=== PATIENT | male | born 1945 | race Caucasian/White ===

== ENCOUNTER 2017-03-18 08:48 | Outpatient (CLI) | payer MEDICARE, OTHER ==
--- NOTE | 2017-03-18 11:03 | MRI ---
MRI OF THE LEFT KNEE: Date: 03-18-17 Clinical history: Left knee pain. FINDINGS: The anterior cruciate ligament, posterior cruciate ligament, medial collateral ligament and lateral c ollateral ligamentous complex demonstrate an intact MR appearance, as does the extensor mechanism. There is complex degenerative tearing/maceration of the body and posterior horn of the medial meniscu s. There is extensive associated articular cartilage loss which is full thickness in nature involving the central weight bearing portions of the medial femorotibial joints. There is nondisplaced oblique tear suspected involving the posterior horn of the lateral meniscus at the junction with the body. There is a mild to moderate knee joint effusion. There is articular cartilage absence involving the medial patellar facet and medial aspects of the fe moral trochlea. Osteophyte formation is seen about the knee. There is Sharma cyst formation. No focal concerning regional marrow or muscular signal abnormality is apparent. Signal change is reactive to t he tip of the cartilage loss about the medial and tibial joint are seen. Fluid signal intensity about the MCL is typical of the degree of degenerative arthrosis present. IMPRESSION: 1. Advanced degenerative arthrosis of the left knee preferentially involving the medial femorotibial joint and medial aspect of the patellofemoral joint. 2. Complex degenerative tearing involving the body and posterior horn of the medial meniscus and nond isplaced oblique tear suspected involving the posterior horn/body junction of the lateral meniscus. 3. Mild/moderate knee joint effusion with Sharma cyst formation. POS: [facility]
== END 2017-03-18 08:49 | disposition home or self-care (01) ==
LOC: TBSIIMAG 08:48
PROVIDERS: ATTEND Orthopaedic Surgery
DX: M25.562 Pain in left knee (principal); M17.12 Unilateral primary osteoarthritis, left knee; S83.232A Complex tear of medial meniscus, current injury, left knee, initial encounter

== ENCOUNTER 2017-04-12 08:24 | Outpatient (CLI) | payer MEDICARE, OTHER ==
[2017-04-12 10:10] LABS: Bilirubin Small (Negative); Blood, Urine Negative (Negative); Clarity TURBID (Clear); Glucose, Urine (Dipstick) Negative (Negative); Leukocyte Trace (Negative); Nitrite Negative (Negative); Protein, Urine (Dipstick) Trace mg/dL (Neg-Trace); Specific Gravity, Urine 1.027 (1.002-1.036)
[2017-04-12 10:13] LABS: Bacteria/HPF None Seen HPF (None Seen); Hyaline Casts/LPF 4-6 HYALINE CAST LPF (0-3 Hyaline); Pathc Cast-AUWi Flag 0.54 (0-2.49); Squamous Epithelial 0-3 HPF (0-3)
== END 2017-04-12 08:25 | disposition home or self-care (01) ==
LOC: LABBT 08:24
PROVIDERS: ATTEND Orthopaedic Surgery
DX: Z01.812 Encounter for preprocedural laboratory examination (principal); M17.12 Unilateral primary osteoarthritis, left knee
CPT/HCPCS: 81001

== ENCOUNTER 2017-04-21 08:24 | Outpatient (CLI) | payer MEDICARE, OTHER ==
[2017-04-21 09:21] LABS: Hemoglobin 14.4 g/dL (14.0-18.0); Mean Corpuscular HGB CONC 33.5 g/dL (32.0-36.0); Mean Corpuscular Hemoglobin 28.9 pg (27.0-31.0); Mean Corpuscular Volume 86.2 fl (80.0-94.0); Mean Platelet Volume 6.6 fL (7.4-10.4); Platelet Count 312 thou/uL (130-400); RBC Distribution Width 12.7 % (11.5-14.5); Red Blood Cell (RBC) Count 4.99 mill/uL (4.70-6.10); White Blood Cell (WBC) Count 9.2 thou/uL (4.8-10.8)
[2017-04-21 09:34] LABS: Anion Gap 12 mmol/L (10-20); BUN (Urea Nitrogen) 19 mg/dL (8.4-25.7); Calc. Creatinine Clearance 0 mL/min (70-130); Calcium 9.6 mg/dL (7.8-10.44); Carbon Dioxide 24 mmol/L (23-31); Chloride 104 mmol/L (98-107); Estimated GFR-MDRD 87; Glucose 136 mg/dL (83-110); Potassium 3.6 mmol/L (3.5-5.1); Sodium 136 mmol/L (136-145)
[2017-04-21 09:48] LABS: Prothrombin Time 13.5 SEC (12.0-14.7)
== END 2017-04-21 08:25 | disposition home or self-care (01) ==
LOC: LABBT 08:24
PROVIDERS: ATTEND Orthopaedic Surgery
DX: Z01.818 Encounter for other preprocedural examination (principal); M17.12 Unilateral primary osteoarthritis, left knee
CPT/HCPCS: 80048; 85027; 85610; 86850; 86900; 86901

== ENCOUNTER 2017-04-25 05:33 | Day surgery (SDC) | payer MEDICARE, OTHER ==
[2017-04-12 08:40] VITALS: BMI 40.2
--- NOTE | 2017-04-21 13:31 | HP ---
HISTORY OF PRESENT ILLNESS: The patient is a 71-year-old white male with a greater than 6-month hist ory of progressive left knee pain without specific injury, but he is normally quite active. He has h ad persistent symptoms despite rest, restriction of activities, anti-inflammatory medications and pre vious cortisone injection. The pain is now interfering with day-to-day activities. PAST MEDICAL HISTORY: The patient has had a previous rotator cuff repair, lumbar fusion and previous prostatectomy. He also has history of hypertension and high cholesterol. CURRENT MEDICATIONS: Include losartan, Crestor, ibuprofen and aspirin. ALLERGIES: He has no known allergies. FAMILY HISTORY: Otherwise unremarkable. SOCIAL HISTORY: Otherwise unremarkable. REVIEW OF SYSTEMS: Otherwise unremarkable. PHYSICAL EXAMINATION: GENERAL: Reveals a healthy heavyset male. HEENT: Unremarkable. NECK: Supple. CHEST: Clear. HEART: Regular rate and rhythm. ABDOMEN: Soft and nontender. RECTAL/GENITAL: Deferred. EXTREMITIES: Pertinent findings of the left knee. There is mild varus. There is tenderness and cre pitus over the medial joint line. There is puffiness, but no effusion. Range of motion is 0 to 125 degrees. There are palpable distal pulses. Neurovascular exam is intact. There is a left antalgic gait. X-RAY FINDINGS: X-rays of the left knee reveal bone on bone collapse medially with progression from previous x-rays. MRI scan reveals advanced DJD and degenerative medial and lateral meniscal tears. IMPRESSION: 1. Degenerative arthritis, left knee. 2. History of hypertension. 3. History of previous prostatectomy. PLAN: Left total knee replacement. The nature of the surgery, length of recovery, and potential com plications such as infection, loss of motion, incomplete relief, delayed wound healing, neurovascular injury, thromboembolic phenomenon, possible transfusion, and need for revision have been discussed i n detail.
[2017-04-25] MEDS ORDERED: Tranexamic Acid 1,000 MG/100 ML BAG ONE ×2 (06:04→09:01)
[2017-04-25] MEDS ORDERED: CEFAZOLIN/Water 2 GM/20 ML SYRINGE ONE (06:05)
[2017-04-25] MEDS ORDERED: Vancomycin HCl 1.5 GM in Sodium Chloride 0.9% 250 ML 300 ML IVPB SCH ×2 (06:15→20:00)
[2017-04-25] MEDS ORDERED: Midazolam HCl 2 mg/2 ml Vial ONE (06:21)
[2017-04-25] MEDS ORDERED: Fentanyl 100 MCG/2 ML VIAL ONE ×3 (06:21→10:06)
[2017-04-25] MEDS ORDERED: Lidocaine 1% w/Epinephrine 1:100K 30 ML VIAL ONE (06:37)
[2017-04-25] MEDS ORDERED: Bupivacaine 0.25% HCL 30 ML VIAL ONE (06:37)
[2017-04-25] MEDS ORDERED: Ondansetron HCl/PF 4 MG/2 ML Vial IVP PRN ×3 (07:47→10:17)
[2017-04-25] MEDS ORDERED: Tranexamic Acid 1,000 MG in Sodium Chloride 0.9% 100 ML IVPB SCH ×2 (09:00→10:17)
[2017-04-25] MEDS ORDERED: Ropivacaine 0.5% HCl/PF (150 MG/30 ML VIAL) ONE (09:18)
[2017-04-25] MEDS ORDERED: Ropivacaine 0.2% HCl/PF (40 MG/20 ML VIAL) ONE (09:18)
[2017-04-25] MEDS ORDERED: Zolpidem Tartrate 5 MG TAB PO PRN ×2 (09:24→10:17)
[2017-04-25] MEDS ORDERED: Ropivacaine 0.2% 550 ML 550 ML NERVE BLCK SCH (09:24)
[2017-04-25] MEDS ORDERED: HYDROcodone/Acetaminophen 10/325 mg Tablet PO PRN ×3 (09:24→10:17)
[2017-04-25] MEDS ORDERED: Promethazine HCl 25 MG/ML VIAL IM PRN (09:24)
[2017-04-25] MEDS ORDERED: traMADol HCl 50 MG TAB PO PRN ×3 (09:24→10:17)
[2017-04-25] MEDS ORDERED: Fentanyl 100 MCG/2 ML VIAL IV PRN (09:25)
--- NOTE | 2017-04-25 09:31 | OP ---
DATE OF PROCEDURE: 04/25/2017 SURGEON: Brown Jha M.D. MANUFACTURING TEST TECHNICIAN: Pato Ardon PA-C. ANESTHESIA: General plus femoral and sciatic nerve blocks. PREOPERATIVE DIAGNOSIS: Degenerative arthritis, left knee. POSTOPERATIVE DIAGNOSIS: Degenerative arthritis, left knee. PROCEDURES: Left total knee replacement with computer-assisted navigation with cemented [employer] thlon components (#5 femoral component, with #6 universal tibial baseplate with 9 mm CS plastic inser t, and a 35 all plastic patellar.) NARRATIVE REPORT: After satisfactory anesthesia was induced in supine position, the patient was prep ped and draped in the routine manner. Sequential compression device was used on the non-operative le g throughout the procedure. Patient's left leg was elevated, exsanguinated with an Esmarch bandage, and the tourniquet inflated to 300 mmHg. A gently curved medial parapatellar incision was made and c arried down through subcutaneous tissues. The bleeding points controlled with cautery. Medial parap atellar arthrotomy was performed. Patella dislocated laterally. Portions of the fat pad were excise d for exposure. There was marked degenerative arthritis of the knee, especially medially, with large areas of exposed bone. Meniscal remnants and osteophytes were removed. Using the appropriate guide s and the [employer] pinless navigation system, the distal femoral and proximal tibial articular surface s were excised with an oscillating saw to accept the trial components. It was felt that a #5 femoral component and #6 tibial baseplate with 9 mm CS plastic insert gave appropriate size, fit, and stabil ity. The patellar articular surface was excised to accept an all plastic A32 patellar component. Th ere was good range of motion, good patellar tracking. The trial components were removed. The knee w as copiously irrigated with pulsatile lavage and the bony surfaces thoroughly cleaned and dried. The permanent components were then cemented in a single stage using 1 package of cement premixed with 1 gram of tobramycin powder. Excess cement was removed. There was again good fit and stability of the components. The medial retinaculum and quadriceps mechanism was closed with interrupted #2 Vicryl a nd a running #2 Quill. The skin incision was infiltrated with a mixture of 0.25% Marcaine and 50% of 1% lidocaine with epinephrine 20 mL, an additional 20 mL of this mixture was injected into the knee joint. Subcutaneous tissues were closed with running 0 Quill suture and the skin closed with running subcuticular 3-0 Monoderm and SurgiSeal skin adhesive. A sterile bulky compressive dressing was darin lied and the tourniquet deflated after 69 minutes. The foot promptly pinked up. A sequential compre ssion device was placed on his operated leg and he was awakened and taken to recovery room in stable condition. There were no apparent intraoperative complications. The estimated blood loss was less t avalos 100 mL.
--- NOTE | 2017-04-25 10:04 | RAD ---
LEFT KNEE 2 VIEWS: HISTORY: Total knee postop. FINDINGS/IMPRESSION: There are recent postop changes of total knee arthroplasty in good position and alignment. Soft tiss ue air is present. POS: OFF
[2017-04-25] MEDS ORDERED: Acetaminophen 325 MG TAB PO PRN (10:17)
[2017-04-25] MEDS ORDERED: Fentanyl 100 MCG/2 ML VIAL SLOW IVP PRN ×2 (10:17)
[2017-04-25] MEDS ORDERED: Promethazine HCl 25 MG/ML VIAL SLOW IVP PRN (10:17)
[2017-04-25] MEDS ORDERED: diphenhydrAMINE 25 MG CAP PO PRN (10:17)
[2017-04-25] MEDS ORDERED: Losartan 25 MG TAB PO SCH (10:45)
[2017-04-25] MEDS ORDERED: Aspirin 81 mg Enteric Coated Tablet PO SCH (10:45)
[2017-04-25] MEDS: Sodium Chloride 0.9% 1,000 ML IV SCH ×2 (11:30→22:50)
[2017-04-25] MEDS: CEFAZOLIN/Water 2 GM/20 ML SYRINGE SLOW IVP SCH ×2 (13:56→22:53)
[2017-04-25] MEDS ORDERED: Ketorolac Tromethamine 30 MG/ML VIAL IVP SCH (14:00)
[2017-04-25] MEDS: Ketorolac Tromethamine 30 MG/ML VIAL IVP SCH ×3 (14:00→22:52)
[2017-04-25] MEDS: HYDROcodone/Acetaminophen 10/325 mg Tablet PO PRN ×2 (14:57→20:11)
--- NOTE | 2017-04-25 19:09 | PDOC.PN ---
- Subjective Encounter Start Date: 04/25/17 Encounter Start Time: 18:45 Subjective: Consulted for med mgmt s/p L TKR. Hx of HTN and HLD. Some L knee pain but -: ambulated post-op. No new complaints. Reviewed all Hx, Labs, Rads. - Objective MAR Reviewed: Yes Vital Signs & Weight: Vital Signs (12 hours) Temp Pulse Resp BP Pulse Ox 04/25/17 11:15 98.2 F 82 16 04/25/17 11:11 98.2 F 82 16 123/59 L 95 Weight Weight 257 lb Additional Labs: Laboratory Tests 02/26/14 04/21/17 04/21/17 14:52 08:30 08:30 WBC 9.2 Hgb 14.4 Hct 43.0 Plt Count 312 Sodium 136 Potassium 3.6 Chloride 104 Carbon Dioxide 24 Anion Gap 12 BUN 19 POC Creatinine 1.0 Creatinine 0.86 Estimated GFR (MDRD) 87 Glucose 136 H Calcium 9.6 Radiology Reviewed by me: Yes (L Knee - postop changes with hardware in place) EKG Reviewed by me: Yes (NSR, no acute changes, 1st degree AVB) Phys Exam - Physical Examination Constitutional: NAD HEENT: PERRLA, oral pharynx no lesions Neck: no JVD, supple Respiratory: no wheezing, clear to auscultation bilateral Cardiovascular: RRR Gastrointestinal: soft, non-tender, no distention, positive bowel sounds L knee with AKI wrap in place, +edema Musculoskeletal: pulses present, edema present Neurological: normal sensation, moves all 4 limbs Psychiatric: A&O x 3 Skin: normal turgor, cap refill <2 seconds Dx/Plan (1) HTN (hypertension) Code(s): I10 - ESSENTIAL (PRIMARY) HYPERTENSION Status: Chronic Qualifiers: Hypertension type: essential hypertension Qualified Code(s): I10 - Essential (primary) hypertension Comment: Stable, continue Losartan 100mg daily (2) HLD (hyperlipidemia) Code(s): E78.5 - HYPERLIPIDEMIA, UNSPECIFIED Status: Chronic Comment: Continue Crestor daily (3) BPH (benign prostatic hyperplasia) Code(s): N40.0 - BENIGN PROSTATIC HYPERPLASIA WITHOUT LOWER URINRY TRACT SYMP Status: Chronic (4) Status post total knee replacement, left Code(s): Z96.652 - PRESENCE OF LEFT ARTIFICIAL KNEE JOINT Status: Acute Comment: Continue pain control and nerve block, PT for ambulation, ASA 81mg BID - Plan plan discussed w/ family, PT/OT, social services specialist, out of bed/ambulate, DVT proph w/SCDs Stable overall -: Continue IVF's -: ASA 81mg BID -: Resume Losartan 100mg daily -: Clonidine 0.1mg po q4h prn SBP>180 * AM lab: CBC * Likely to SNF [facility] in am
[2017-04-25] MEDS ORDERED: cloNIDine 0.1 MG TAB PO PRN (19:15)
[2017-04-25] MEDS: Aspirin 81 mg Enteric Coated Tablet PO SCH (20:11)
[2017-04-25] MEDS ORDERED: Rosuvastatin 10 MG TAB PO SCH (21:00)
[2017-04-26] MEDS: HYDROcodone/Acetaminophen 10/325 mg Tablet PO PRN ×3 (01:10→13:49)
[2017-04-26 04:43] LABS: Hemoglobin 11.2 g/dL (14.0-18.0); Mean Corpuscular HGB CONC 33.8 g/dL (32.0-36.0); Mean Corpuscular Hemoglobin 29.4 pg (27.0-31.0); Mean Platelet Volume 6.7 fL (7.4-10.4); Platelet Count 231 thou/uL (130-400); RBC Distribution Width 12.3 % (11.5-14.5); Red Blood Cell (RBC) Count 3.81 mill/uL (4.70-6.10); White Blood Cell (WBC) Count 12.8 thou/uL (4.8-10.8)
[2017-04-26] MEDS: Ketorolac Tromethamine 30 MG/ML VIAL IVP SCH ×2 (05:01→13:06)
[2017-04-26] MEDS: Sodium Chloride 0.9% 1,000 ML IV SCH ×2 (06:28→13:00)
[2017-04-26] MEDS ORDERED: Ferrous Gluconate 324 MG TAB PO SCH (08:00)
[2017-04-26] MEDS: Aspirin 81 mg Enteric Coated Tablet PO SCH (08:23)
[2017-04-26] MEDS ORDERED: Multivitamin W/ Minerals 1 TAB PO SCH (09:00)
[2017-04-26] MEDS ORDERED: Senokot S 8.6-50 MG TAB PO SCH (09:00)
[2017-04-26] MEDS ORDERED: Losartan 25 MG TAB PO SCH (09:00)
[2017-04-26] MEDS ORDERED: TESTOSTERONE TD SCH (09:00)
[2017-04-26 14:10] VITALS: BP 143/68; TEMP 97.8
--- NOTE | 2017-04-26 14:52 | PDOC.PN ---
- Subjective Encounter Start Date: 04/26/17 Encounter Start Time: 10:00 -: old records requested/rev Pt seen and examined, chart reviewed in its entirety, this is my first visit with this patient No F/C, no N/V/D/C, no CP, no SOB 10 point ROS performed and neg for all systems except as per HPI - Objective Vital Signs & Weight: Vital Signs (12 hours) Temp Pulse Resp BP Pulse Ox 04/26/17 12:45 97.8 F 70 14 143/68 H 95 04/26/17 08:00 97.5 F L 92 18 04/26/17 07:40 97.7 F 70 16 163/72 H 95 04/26/17 05:00 97.5 F L 92 18 134/69 94 L Weight Admit Weight 257 lb Weight 257 lb I&O: 04/25/17 04/26/17 04/27/17 06:59 06:59 06:59 Intake Total 2640 1000 Output Total 1850 Balance 790 1000 Result Diagrams: 04/26/17 04:08 Dx/Plan - Plan * .
== END 2017-04-26 16:48 | disposition home or self-care (01) ==
LOC: SDC 05:33 → SJJU 07:09 → SDC 04-26 16:48
PROVIDERS: ATTEND Orthopaedic Surgery
PROC: 0SRD0J9 Replacement of Left Knee Joint with Synthetic Substitute, Cemented, Open Approach (ICD-10-PCS; principal; 2017-04-25)
PROC: 8E0YXBZ Computer Assisted Procedure of Lower Extremity (ICD-10-PCS; 2017-04-25)
DX: M17.12 Unilateral primary osteoarthritis, left knee (principal); M25.762 Osteophyte, left knee; I10 Essential (primary) hypertension; E78.5 Hyperlipidemia, unspecified; M54.9 Dorsalgia, unspecified; G89.29 Other chronic pain; F17.290 Nicotine dependence, other tobacco product, uncomplicated; Z79.82 Long term (current) use of aspirin; Z79.899 Other long term (current) drug therapy; Z98.1 Arthrodesis status; Z98.890 Other specified postprocedural states
CPT/HCPCS: 36415; 85027; 96374; A4306; C1713; C1776; G8978-GP-CK; G8979-GP-CJ; J1885; J2001; J2250; J2795; J3010; J3370; J7050; S0020

== ENCOUNTER 2018-08-22 20:27 | Inpatient (IN) | payer MEDICARE, OTHER ==
[2018-08-22] MEDS ORDERED: Morphine 4 MG/ML VIAL ONE (20:50)
[2018-08-22] MEDS ORDERED: Ondansetron PF 4 MG/2 ML Vial ONE (20:50)
[2018-08-22 21:17] LABS: #Eosinphils 0.2 thou/uL (0.0-0.7); #Lymphocytes 3.7 thou/uL (1.20-3.40); #Monocytes 1.4 thou/uL (0.11-0.59); #Neutrophils 14.4 thou/uL (1.40-6.50); %Basophils 0.2 % (0.0-1.0); %Eosinophils 1.2 % (0.0-10.0); %Lymphocytes 18.7 % (21.0-51.0); Hemoglobin 13.9 g/dL (14.0-18.0); Mean Corpuscular HGB CONC 34.8 g/dL (32.0-36.0); Mean Corpuscular Hemoglobin 29.7 pg (27.0-31.0); Mean Corpuscular Volume 85.3 fL (78.0-98.0); Mean Platelet Volume 6.9 fL (7.4-10.4); Platelet Count 346 thou/uL (130-400); White Blood Cell (WBC) Count 19.7 thou/uL (4.8-10.8)
--- NOTE | 2018-08-22 21:43 | CT ---
CT abdomen and pelvis noncontrast HISTORY: Right flank pain. FINDINGS: Each renal collecting system, ureter, and urinary bladder are decompressed without stone ap parent. Lack of contrast limits evaluation for other abnormalities. There is calcification throughout the art erial structures. Diverticula arise from the colon without adjacent inflammation. Degenerative and postoperative changes lumbar spine. Mildly distended gas and fluid filled loops of small bowel throug hout the abdomen measure up to 3.4 cm. The distal ileum is completely decompressed. Point of transition is favored to be in the anterior aspect of the right lower quadrant. No masses are apparen t. IMPRESSION: No CT evidence of urinary tract obstruction or calcification. Low grade/partial distal small bowel obstruction. No cause is apparent. Likely adhesion. Diverticulosis. No evidence of diverticulitis. Atherosclerosis.
[2018-08-22 21:45] LABS: ALT (SGPT) 23 U/L (8-55); AST (SGOT) 15 U/L (5-34); Albumin 4.6 g/dL (3.4-4.8); Alkaline Phosphatase 81 U/L (40-150); Anion Gap 13 mmol/L (10-20); BUN (Urea Nitrogen) 15 mg/dL (8.4-25.7); Bilirubin, Total 0.4 mg/dL (0.2-1.2); Calc. Creatinine Clearance 0 mL/min (70-130); Calcium 9.6 mg/dL (7.8-10.44); Carbon Dioxide 26 mmol/L (23-31); Chloride 102 mmol/L (98-107); Estimated GFR-MDRD 75; Globulin 3.1 g/dL (2.4-3.5); Glucose 114 mg/dL (83-110); Potassium 3.9 mmol/L (3.5-5.1); Protein, Total 7.7 g/dL (5.8-8.1); Sodium 137 mmol/L (136-145)
[2018-08-22 22:23] LABS: Lactic Acid 1.2 mmol/L (0.5-2.2)
[2018-08-22] MEDS ORDERED: Piperacillin/Tazobactam 4.5 GM in Sodium Chloride 0.9% 100 ML IVPB SCH (22:30)
[2018-08-23 00:17] LABS: Bilirubin Negative (Negative); Blood, Urine Negative (Negative); Clarity Clear (Clear); Glucose, Urine (Dipstick) Negative (Negative); Leukocyte Negative (Negative); Nitrite Negative (Negative); Protein, Urine (Dipstick) Negative (Neg-Trace); Urobilinogen 0.2 mg/dL (0.2-1.0)
[2018-08-23] MEDS ORDERED: Sodium Chloride 0.9% 1,000 ML IV SCH (01:15)
[2018-08-23 01:45] VITALS: BMI 35.2
[2018-08-23] MEDS ORDERED: Ondansetron ODT 4 MG TAB PO PRN (04:40)
[2018-08-23] MEDS ORDERED: Ondansetron PF 4 MG/2 ML Vial IVP PRN (04:40)
[2018-08-23] MEDS ORDERED: Morphine 4 MG/ML VIAL SLOW IVP SCH (04:45)
[2018-08-23] MEDS ORDERED: Acetaminophen 325 MG TAB PO PRN (08:42)
[2018-08-23] MEDS ORDERED: Bisacodyl 10 MG SUPP PR PRN (08:42)
[2018-08-23] MEDS ORDERED: Morphine 2 MG/ML SYRINGE SLOW IVP PRN (09:03)
[2018-08-23] MEDS: Lactated Ringer's 1,000 ML IV SCH (09:15)
[2018-08-23] MEDS ORDERED: MD-Gastroview 120 ML BOT ONE (10:43)
[2018-08-23] MEDS: Famotidine/PF 20 mg/2ml Vial SLOW IVP SCH ×2 (12:15→20:10)
[2018-08-23] MEDS: Enoxaparin Sodium 40 MG/0.4 ML SYRINGE SC SCH (12:15)
--- NOTE | 2018-08-23 14:14 | HP ---
REASON FOR ADMISSION: Small-bowel obstruction. HISTORY OF PRESENTING ILLNESS: The patient gives history of having abdominal pain, which started around 5:00 p.m. yesterday. This was in the lower quadrants and around 5/10 in intensity. The pain was colicky in nature. He was feeling nauseous, finally vomited once this morning, which was large in quantity. He felt better after that. He has been burping since then. Abdominal pain has eased up considerably now. Last bowel movement was at 3:30 p.m.yesterday, which was looking normal. Since then, he has not had any flatus or BM after that. No prior abdominal surgeries. PAST MEDICAL AND SURGICAL HISTORY: Hypertension, dyslipidemia, sensorineural deafness, lower back surgery x2, rotator cuff repair on the right side, tonsillectomy, and left total knee replacement. CURRENT MEDICATIONS: He takes: 1. Losartan. 2. Rosuvastatin. 3. Aspirin. 4. Chantix. ALLERGIES: NO KNOWN DRUG ALLERGIES. PERSONAL HISTORY: Quit smoking cigars recently. He used to smoke 15 cigars a day. He says those are smaller size cigars. Does not abuse alcohol or drugs. The patient is for 45 years. FAMILY HISTORY: Mother at the age of 88 years from natural causes. Father from massive CVA at the age of 57 years. CODE STATUS: Full. Power of county attorney is his . REVIEW OF SYSTEMS: CONSTITUTIONAL: Negative for weight loss or gain, ability to conduct usual activities. SKIN: Negative for rash, itching. EYES: Negative for double vision, pain. ENT/MOUTH: Negative for nose bleeding, neck stiffness, pain, tenderness. CARDIOVASCULAR: Negative for palpitations, dyspnea on exertion, orthopnea. RESPIRATORY: Negative for shortness of breath, wheezing, cough, hemoptysis, fever or night sweats. GASTROINTESTINAL: Negative for poor appetite, abdominal pain, heartburn, nausea , vomiting, constipation, or diarrhea. GENITOURINARY: Negative for urgency, frequency, dysuria, nocturia. MUSCULOSKELETAL: Negative for pain, swelling. NEUROLOGIC/PSYCHIATRIC: Negative for anxiety, depression. ALLERGY/IMMUNOLOGIC: Negative for skin rash, bleeding tendency. PHYSICAL EXAMINATION: GENERAL: The patient is a 72-year-old male, who is currently not in any acute distress. VITAL SIGNS: Blood pressure 160/70, pulse 86 per minute, respiratory rate 16 per minute, temperature 97.7 degrees Fahrenheit, and saturating 98% on room air. NECK: Supple. No elevated JVD. HEENT: Eyes; extraocular muscles intact. Pupils reacting to light. Oral cavity, mucous membranes are dry. No exudates or congestion. CARDIOVASCULAR SYSTEM: S1 and S2 heard. Regular rhythm. RESPIRATORY SYSTEM: Air entry 1+ bilateral. No rales or rhonchi. ABDOMEN: Mild Distention. Mild tenderness in the lower quadrants. No rigidity or guarding. Bowel sounds are heard. EXTREMITIES: No peripheral edema or calf tenderness. VASCULAR SYSTEM: Peripheral pulses 1+ bilateral. No ischemic ulcerations or gangrene. CENTRAL NERVOUS SYSTEM: No gross focal deficits noted. The patient is alert, awake, and oriented well. PSYCHIATRIC SYSTEM: The patient's mood is euthymic. No hallucinations or delusions. LABORATORY DATA: CT of abdomen and pelvis done shows partial distal small-bowel obstruction, likely due to adhesion, diverticulosis, no evidence of diverticulitis. White count of 19, hemoglobin and hematocrit of 13 and 40, platelet count 346, MCV 85 with 73% neutrophils. Electrolytes stable. BUN 15, creatinine 0.9, and serum glucose 114. Liver enzymes within normal limits. UA is negative for any infection. CLINICAL IMPRESSION AND PLAN: The patient will be admitted to medical floor for small-bowel obstruction. He will be kept n.p.o. He will be on lactated Ringer' s at 75 mL per hour. Morphine p.r.n. for pain. Dr. Gaitan has been consulted from ER, and we will await his opinion for further imaging. I have given full updates to the patient and his at bedside. We will hold his losartan, Crestor, and Chantix for now. If his abdominal pain or distention gets worse with persistent vomiting will place NG tube with low intermittent suction. He is comfortable at present clinically with no alarm signs on clinical exam. Job ID: [id number] [facility]
[2018-08-23] MEDS ORDERED: Ondansetron ODT 4 MG TAB SL PRN (19:36)
--- NOTE | 2018-08-23 20:47 | RAD ---
Small bowel follow-through HISTORY: Small bowel obstruction. FINDINGS: Exam was performed with water-soluble contrast. Mildly dilated loops of small bowel are pre sent throughout the abdomen. Imaging carried out to 4 hours shows accumulation of contrast within the mid to distal small bowel. Contrast has not reached the right colon at 4 hours. IMPRESSION: High-grade distal small bowel obstruction.
--- NOTE | 2018-08-23 22:40 | CON ---
DATE OF CONSULTATION: 08/23/2018 CHIEF COMPLAINT: Abdominal bloating. HISTORY OF PRESENT ILLNESS: This is a 72-year-old who presents with bloating for 2 days, had a bowel movement yesterday that was normal by his report. This is not associated with nausea. He did vomit this morning. He has never had abdominal surgery before, previous small bowel obstruction. CT scan without IV or p.o. contrast revealed potential evidence of small bowel obstruction. However, no oral or IV contrast was given, which is not the standard for a CT scan of the abdomen to rule out an obstruction. Now, he notes mild pain diffusely. It is better than it was when he came in. He did vomit this morning, but he has no nausea now. PAST MEDICAL HISTORY: Includes hypertension, dyslipidemia. PAST SURGICAL HISTORY: Back surgery, rotator cuff, tonsillectomy, left knee. MEDICINES: 1. Losartan. 2. Statin. 3. Aspirin. 4. Chantix. ALLERGIES: NO KNOWN DRUG ALLERGIES. SOCIAL HISTORY: No alcohol or other drugs. REVIEW OF SYSTEMS: A 10-system review of system is otherwise negative unless described above. PHYSICAL EXAMINATION: VITAL SIGNS: Blood pressure is 164/80, pulse 81, respirations 16. He is afebrile. HEENT: Sclerae are anicteric. Oropharynx is clear. NECK: No lymphadenopathy. CHEST: Clear. HEART: Regular rate and rhythm. ABDOMEN: Soft, mildly diffusely tender without guarding or rebound. EXTREMITIES: No ischemia or edema to extremities. LABORATORY DATA: Creatinine 0.98. White blood cell count last night 19, hemoglobin 13, platelet count is 346. Urine was clear. CT scan on admission showed questionable partial small bowel obstruction. ASSESSMENT: Abdominal distention and bloating, but he does not have a good story for this to be a small bowel obstruction and his CT scan was not adequate for diagnosis of a small bowel obstruction without oral contrast. PLAN: Gastrografin small bowel follow-through. Job ID: [id number]
[2018-08-24] MEDS: Lactated Ringer's 1,000 ML IV SCH ×2 (03:23→08:23)
[2018-08-24] MEDS: Ondansetron PF 4 MG/2 ML Vial IVP PRN ×2 (03:48→08:24)
[2018-08-24 06:42] LABS: Hemoglobin 14.9 g/dL (14.0-18.0); Mean Corpuscular HGB CONC 33.8 g/dL (32.0-36.0); Mean Corpuscular Hemoglobin 29.3 pg (27.0-31.0); Mean Corpuscular Volume 86.5 fL (78.0-98.0); Mean Platelet Volume 6.8 fL (7.4-10.4); Platelet Count 369 thou/uL (130-400); RBC Distribution Width 12.3 % (11.5-14.5); Red Blood Cell (RBC) Count 5.09 mill/uL (4.70-6.10); White Blood Cell (WBC) Count 21.4 thou/uL (4.8-10.8)
[2018-08-24 07:04] LABS: Anion Gap 16 mmol/L (10-20); BUN (Urea Nitrogen) 17 mg/dL (8.4-25.7); Calc. Creatinine Clearance 101 mL/min (70-130); Calcium 10.4 mg/dL (7.8-10.44); Carbon Dioxide 27 mmol/L (23-31); Chloride 103 mmol/L (98-107); Estimated GFR-MDRD 66; Glucose 131 mg/dL (83-110); Sodium 142 mmol/L (136-145)
[2018-08-24 07:38] LABS: Band 1 % (5-11); Lymphocytes 10 % (21-51); MDiff Complete? YES; Monocytes 7 % (0-10); Neutrophil 80 % (42-75); RBC Morphology Normal; Reactive Lymphocytes 2 % (0-10)
[2018-08-24] MEDS: Enoxaparin Sodium 40 MG/0.4 ML SYRINGE SC SCH ×2 (08:24→20:30)
[2018-08-24] MEDS: Famotidine/PF 20 mg/2ml Vial SLOW IVP SCH ×2 (08:24→20:30)
--- NOTE | 2018-08-24 08:34 | PDOC.GSPN ---
Surgery Progress Note: Subj - Subjective Narrative: No bm, vomitting overnight Surgery Progress Note: Obj - Vital signs Vital signs: Vital Signs - Most Recent Temp Pulse Resp BP Pulse Ox 98.4 F 85 20 150/80 H 91 L 08/24/18 07:35 08/24/18 07:35 08/24/18 07:35 08/24/18 07:35 08/24/18 07:35 - Physical Exam General: no distress Cardiovascular: regular rate and rhythm Respiratory: clear to auscultation Abdomen: soft, decreased bowel sounds, distended Surgery Progress Note: Results - Labs Result Diagrams: 08/24/18 05:56 08/24/18 05:56 Lab results: Laboratory Results - last 24 hr 08/24/18 08/24/18 05:56 05:56 WBC 21.4 H RBC 5.09 Hgb 14.9 Hct 44.0 MCV 86.5 MCH 29.3 MCHC 33.8 RDW 12.3 Plt Count 369 MPV 6.8 L Neutrophils % (Manual) 80 H Band Neuts % (Manual) 1 L Lymphocytes % (Manual) 10 L Reactive Lymphs % 2 Monocytes % (Manual) 7 Neutrophils # Not Reportable Lymphocytes # Not Reportable RBC Morph Comment Normal Sodium 142 Potassium 4.0 Chloride 103 Carbon Dioxide 27 Anion Gap 16 BUN 17 Creatinine 1.09 Estimated GFR (MDRD) 66 Glucose 131 H Calcium 10.4 Surgery Progress Note: A/P - Problem (1) Small intestine obstruction Current Visit: Yes Code(s): K56.609 - UNSP INTESTNL OBST, UNSP TO PARTIAL VERSUS COMPLETE OBST Status: Acute - Plan Plan: Not any better, SBFT showed distal small bowel obstruction -NG -to OR later today
[2018-08-24] MEDS ORDERED: PHENYLEPHRINE-NS 100 MCG/ML 10 ML SYRINGE ONE (10:06)
[2018-08-24] MEDS ORDERED: Succinylcholine Chloride 20 MG/ML 10 ml SYRINGE FS ONE (10:06)
[2018-08-24] MEDS ORDERED: Rocuronium Bromide 10 MG/ML (10ML VIAL) ONE (10:06)
[2018-08-24] MEDS ORDERED: ePHEDrine 50 MG/ML VIAL ONE (10:06)
[2018-08-24] MEDS ORDERED: PROPOFOL 200 MG/20 ML VIAL ONE (10:06)
[2018-08-24] MEDS ORDERED: Glycopyrrolate 0.2 MG/ML 5 ML SYRINGE ONE (10:06)
[2018-08-24] MEDS ORDERED: Dexamethasone 20 MG/5 ML VIAL ONE (10:06)
[2018-08-24] MEDS ORDERED: Ondansetron PF 4 MG/2 ML Vial ONE (10:06)
[2018-08-24] MEDS ORDERED: Lidocaine 1% PF 5 ML VIAL ONE (10:06)
[2018-08-24] MEDS ORDERED: Fentanyl 100 MCG/2 ML VIAL ONE ×4 (15:16→17:48)
[2018-08-24] MEDS ORDERED: HYDROmorphone 2 MG/ML VIAL ONE (15:46)
[2018-08-24] MEDS ORDERED: Ondansetron HCl/PF 4 MG/2 ML Vial IVP PRN (17:06)
[2018-08-24] MEDS ORDERED: Promethazine HCl 25 MG/ML VIAL IM PRN ×3 (17:06→17:41)
[2018-08-24] MEDS ORDERED: Promethazine HCl 25 MG/ML VIAL SLOW IVP PRN (17:06)
[2018-08-24] MEDS ORDERED: Ondansetron PF 4 MG/2 ML Vial IVP PRN ×2 (17:31→17:41)
[2018-08-24] MEDS ORDERED: diphenhydrAMINE 25 MG CAP PO PRN (17:31)
[2018-08-24] MEDS ORDERED: Naloxone HCl 0.4 mg/ml Vial IV PRN (17:31)
[2018-08-24] MEDS ORDERED: diphenhydrAMINE 50 MG/ML VIAL IVP PRN (17:31)
[2018-08-24] MEDS ORDERED: diphenhydrAMINE 50 MG/ML VIAL IM PRN (17:31)
[2018-08-24] MEDS ORDERED: Zolpidem Tartrate 5 MG TAB PO PRN (17:31)
[2018-08-24] MEDS ORDERED: hydrALAZINE 20 MG/ML VIAL SLOW IVP PRN (17:41)
[2018-08-24] MEDS ORDERED: Communication Order-Pharmacy FS SCH (17:45)
--- NOTE | 2018-08-24 18:09 | PDOC.EVN ---
Event Note - Event Note Event Note: I came to evaluate the patient twice today. He has been in surgery. Unable to see him today.
[2018-08-24] MEDS: D5 1/2 NS w/20 mEq KCL 1,000 ML IV SCH ×2 (18:25→20:31)
[2018-08-24] MEDS: Acetaminophen 1,000 MG in Premix Bag 1 BAG IVPB SCH ×2 (18:25→23:48)
[2018-08-24] MEDS: Famotidine 20 MG TAB PO SCH (20:30)
--- NOTE | 2018-08-25 00:39 | OP ---
DATE OF PROCEDURE: 08/24/2018 PREOPERATIVE DIAGNOSIS: Small bowel obstruction. POSTOPERATIVE DIAGNOSIS: Small bowel obstruction. PROCEDURES PERFORMED: Exploratory laparotomy, lysis of adhesion, biopsy of mesenteric nodules. ANESTHESIA: General. SPECIMEN: None. COMPLICATIONS: None. FINDINGS: Appeared to be a single adhesion to the posterior umbilicus causing a twist of the small segment of the intestine causing this obstruction. In the mesentery of this area, there were few nodular structures. No evidence of diffuse carcinomatosis. The two nodules were excised and sent to Path for final diagnosis to rule out malignancy, although there was no other evidence of malignancy in the abdomen. DESCRIPTION OF PROCEDURE: The patient was taken to the operating room and laid supine on the operating room table. After general anesthetic was obtained, the abdomen was prepped and draped in a sterile fashion, after a Franco was placed. A midline incision was made. Cautery was dissected down into the abdominal cavity. There was a knuckle of small intestine just posterior. This appeared to be the location of the twist. This had been attached to the posterior fascia by a single adhesion. This appeared to be the source of the twist in the obstruction. The small bowel was then run all the way to the colon and proximally to the ligament of Treitz without any further obstruction. There were couple of nodular structures on the mesentery of the small bowel, was easily dissected off and sent to Path fresh as lymph node protocol, but there was no other evidence of malignancy in the abdomen. No evidence of pathology on entire examining the abdomen. No injury to any intraabdominal structures. Midline fascia was closed using #1 PDS from the top to the bottom and tied in the middle. Seprafilm had been placed prior to closure. The wounds were irrigated, closed using 3-0 Vicryl, 4-0 Monocryl, and Dermabond. The patient was sent to Recovery in stable condition. All instrument counts, needle counts, and lap counts were correct. Job ID: [id number]
[2018-08-25] MEDS: Acetaminophen 1,000 MG in Premix Bag 1 BAG IVPB SCH ×2 (05:22→12:02)
[2018-08-25] MEDS: D5 1/2 NS w/20 mEq KCL 1,000 ML IV SCH ×3 (05:24→20:22)
[2018-08-25 05:51] LABS: #Basophils 0.1 thou/uL (0.0-0.2); #Lymphocytes 1.9 thou/uL (1.20-3.40); #Monocytes 1.6 thou/uL (0.11-0.59); #Neutrophils 14.3 thou/uL (1.40-6.50); %Basophils 0.3 % (0.0-1.0); %Eosinophils 0.1 % (0.0-10.0); %Lymphocytes 10.6 % (21.0-51.0); %Monocytes 8.9 % (0.0-10.0); %Neutrophils 80.1 % (42.0-75.0); Hemoglobin 12.5 g/dL (14.0-18.0); Mean Corpuscular HGB CONC 32.2 g/dL (32.0-36.0); Mean Corpuscular Hemoglobin 28.3 pg (27.0-31.0); Mean Corpuscular Volume 87.8 fL (78.0-98.0); Mean Platelet Volume 6.3 fL (7.4-10.4); Platelet Count 293 thou/uL (130-400); RBC Distribution Width 12.1 % (11.5-14.5); White Blood Cell (WBC) Count 17.8 thou/uL (4.8-10.8)
[2018-08-25 06:10] LABS: Anion Gap 14 mmol/L (10-20); BUN (Urea Nitrogen) 18 mg/dL (8.4-25.7); Calc. Creatinine Clearance 123 mL/min (70-130); Calcium 9.1 mg/dL (7.8-10.44); Carbon Dioxide 26 mmol/L (23-31); Chloride 104 mmol/L (98-107); Estimated GFR-MDRD 84; Glucose 125 mg/dL (83-110); Potassium 4.1 mmol/L (3.5-5.1); Sodium 140 mmol/L (136-145)
[2018-08-25] MEDS: Famotidine 20 MG TAB PO SCH ×2 (09:37→20:23)
[2018-08-25] MEDS: Famotidine/PF 20 mg/2ml Vial SLOW IVP SCH ×2 (09:38→20:21)
[2018-08-25] MEDS ORDERED: Cepastat Lozenges 1 LOZ PO PRN (10:59)
--- NOTE | 2018-08-25 15:20 | PDOC.PN ---
- Subjective Encounter Start Date: 08/25/18 Encounter Start Time: 15:18 Mr. Richardson was seen today in follow-up of SBO. He is post op day #1. He does not have any abdominal pain. He denies chest pain or shortness of breath. - Objective Resuscitation Status - Order Detail: 08/23/18 08:39 Resuscitation Status Routine Resuscitation Status: FULL: Full Resuscitation Discussed with: POA: JASON Reviewed: Yes Vital Signs & Weight: Vital Signs (12 hours) Temp Pulse Resp BP BP Pulse Ox 08/25/18 12:41 97.7 F 75 20 126/72 94 L 08/25/18 08:00 97.3 F L 76 18 145/74 H 90 L 08/25/18 07:30 95 08/25/18 04:14 98.4 F 80 20 129/75 95 Weight Admit Weight 260 lb 1.6 oz Weight 260 lb 1.6 oz I&O: 08/24/18 08/25/18 08/26/18 06:59 06:59 06:59 Intake Total 1640 Output Total 1025 Balance 615 Result Diagrams: 08/25/18 05:40 08/25/18 05:40 Phys Exam - Physical Examination HEENT: PERRLA Respiratory: no wheezing, no rales, no rhonchi, clear to auscultation bilateral Cardiovascular: RRR, no significant murmur, no rub Gastrointestinal: soft + mild distention, + diffuse tenderness, no rebound bowel sounds absent Musculoskeletal: no edema, pulses present Dx/Plan (1) Small intestine obstruction Code(s): K56.609 - UNSP INTESTNL OBST, UNSP TO PARTIAL VERSUS COMPLETE OBST Status: Acute (2) BPH (benign prostatic hyperplasia) Code(s): N40.0 - BENIGN PROSTATIC HYPERPLASIA WITHOUT LOWER URINRY TRACT SYMP Status: Chronic (3) HTN (hypertension) Code(s): I10 - ESSENTIAL (PRIMARY) HYPERTENSION Status: Chronic Qualifiers: Hypertension type: essential hypertension Qualified Code(s): I10 - Essential (primary) hypertension Comment: Stable, continue Losartan 100mg daily - Plan * SBO- bowel function has not yet returned, continue NPO status, and NG tube * Further recommendations per Surgery * HTN- his blood pressure has been stable- he has PRN medication as necessary..
[2018-08-25] MEDS: Enoxaparin Sodium 40 MG/0.4 ML SYRINGE SC SCH (20:19)
[2018-08-25] MEDS: fentaNYL Citrate/PF 2,000 MCG in Sodium Chloride 0.9% 60 ML IV PRN (23:30)
[2018-08-26 06:47] LABS: #Eosinphils 0.3 thou/uL (0.0-0.7); #Lymphocytes 2.1 thou/uL (1.20-3.40); #Monocytes 1.5 thou/uL (0.11-0.59); #Neutrophils 11.8 thou/uL (1.40-6.50); %Basophils 0.1 % (0.0-1.0); %Lymphocytes 13.2 % (21.0-51.0); %Monocytes 9.5 % (0.0-10.0); %Neutrophils 75.2 % (42.0-75.0); Mean Corpuscular HGB CONC 33.4 g/dL (32.0-36.0); Mean Corpuscular Hemoglobin 29.6 pg (27.0-31.0); Mean Corpuscular Volume 88.8 fL (78.0-98.0); Mean Platelet Volume 6.3 fL (7.4-10.4); Platelet Count 270 thou/uL (130-400); Red Blood Cell (RBC) Count 4.06 mill/uL (4.70-6.10); White Blood Cell (WBC) Count 15.7 thou/uL (4.8-10.8)
[2018-08-26] MEDS ORDERED: cloNIDine 0.1mg/24 Hour PATCH TD SCH (09:00)
[2018-08-26] MEDS: Famotidine/PF 20 mg/2ml Vial SLOW IVP SCH ×2 (09:19→21:05)
[2018-08-26] MEDS: Famotidine 20 MG TAB PO SCH ×2 (09:21→21:12)
[2018-08-26] MEDS: D5 1/2 NS w/20 mEq KCL 1,000 ML IV SCH (12:37)
--- NOTE | 2018-08-26 15:44 | PDOC.PN ---
- Subjective Encounter Start Date: 08/26/18 Encounter Start Time: 14:00 Mr. Richardson was seen today in follow-up of small bowel obstruction. He has not had the return of spontaneous bowel function yet. He has been up walking a few times. He denies abdominal pain. - Objective Resuscitation Status - Order Detail: 08/23/18 08:39 Resuscitation Status Routine Resuscitation Status: FULL: Full Resuscitation Discussed with: POA: JASON Reviewed: Yes Vital Signs & Weight: Vital Signs (12 hours) Temp Pulse Resp BP BP Pulse Ox 08/26/18 12:39 85 179/77 H 08/26/18 12:00 91 L 08/26/18 11:38 98.3 F 85 18 170/78 H 91 L 08/26/18 08:00 90 L 08/26/18 07:25 98.8 F 86 20 191/84 H 90 L 08/26/18 03:56 98.7 F 107 H 18 182/96 H 91 L Weight Admit Weight 260 lb 1.6 oz Weight 260 lb 1.6 oz I&O: 08/25/18 08/26/18 08/27/18 06:59 06:59 06:59 Intake Total 1640 4426 Output Total 1025 600 Balance 615 3826 Result Diagrams: 08/26/18 06:32 08/25/18 05:40 Phys Exam - Physical Examination HEENT: PERRLA Respiratory: no wheezing, no rales, no rhonchi, clear to auscultation bilateral Cardiovascular: RRR, no significant murmur, no rub Gastrointestinal: soft, non-tender, no distention, positive bowel sounds Musculoskeletal: no edema Dx/Plan (1) Small intestine obstruction Code(s): K56.609 - UNSP INTESTNL OBST, UNSP TO PARTIAL VERSUS COMPLETE OBST Status: Acute (2) BPH (benign prostatic hyperplasia) Code(s): N40.0 - BENIGN PROSTATIC HYPERPLASIA WITHOUT LOWER URINRY TRACT SYMP Status: Chronic (3) HTN (hypertension) Code(s): I10 - ESSENTIAL (PRIMARY) HYPERTENSION Status: Chronic Qualifiers: Hypertension type: essential hypertension Qualified Code(s): I10 - Essential (primary) hypertension Comment: Stable, continue Losartan 100mg daily - Plan * SBO- patient is s/p exploratory lap, with lysis of adhesions * Still awaiting return of bowel function * He may need TPN for nutritional support in the interim * HTN- blood pressure is beginning to creep up. Will add a Catapres patch while he is NPO, and continue Hydralazine as needed.
[2018-08-26] MEDS: Enoxaparin Sodium 40 MG/0.4 ML SYRINGE SC SCH (21:12)
[2018-08-26] MEDS ORDERED: D5W-AA 4.25% with LYTES 1,000 ML BAG IV SCH (22:15)
[2018-08-26] MEDS ORDERED: D5W-AA 4.25% with LYTES 1,000 ML IV SCH (22:15)
[2018-08-27] MEDS: D5 1/2 NS w/20 mEq KCL 1,000 ML IV SCH ×3 (00:35→12:33)
[2018-08-27] MEDS: fentaNYL Citrate/PF 2,000 MCG in Sodium Chloride 0.9% 60 ML IV PRN (06:10)
[2018-08-27 07:33] LABS: #Eosinphils 0.2 thou/uL (0.0-0.7); #Lymphocytes 1.8 thou/uL (1.20-3.40); #Monocytes 1.7 thou/uL (0.11-0.59); #Neutrophils 14.1 thou/uL (1.40-6.50); %Basophils 0.2 % (0.0-1.0); %Eosinophils 1.3 % (0.0-10.0); %Lymphocytes 10.1 % (21.0-51.0); %Monocytes 9.7 % (0.0-10.0); %Neutrophils 78.7 % (42.0-75.0); Hemoglobin 11.8 g/dL (14.0-18.0); Mean Corpuscular HGB CONC 33.2 g/dL (32.0-36.0); Mean Corpuscular Hemoglobin 29.3 pg (27.0-31.0); Mean Corpuscular Volume 88.3 fL (78.0-98.0); Mean Platelet Volume 6.6 fL (7.4-10.4); Platelet Count 297 thou/uL (130-400); RBC Distribution Width 11.9 % (11.5-14.5); Red Blood Cell (RBC) Count 4.03 mill/uL (4.70-6.10); White Blood Cell (WBC) Count 17.9 thou/uL (4.8-10.8)
[2018-08-27 07:54] LABS: Anion Gap 11 mmol/L (10-20); BUN (Urea Nitrogen) 11 mg/dL (8.4-25.7); Calc. Creatinine Clearance 129 mL/min (70-130); Carbon Dioxide 28 mmol/L (23-31); Chloride 101 mmol/L (98-107); Estimated GFR-MDRD 88; Glucose 125 mg/dL (83-110); Potassium 3.6 mmol/L (3.5-5.1); Sodium 136 mmol/L (136-145)
[2018-08-27] MEDS: Famotidine 20 MG TAB PO SCH ×2 (08:02→21:01)
[2018-08-27] MEDS: Famotidine/PF 20 mg/2ml Vial SLOW IVP SCH (08:02)
--- NOTE | 2018-08-27 14:50 | PDOC.PN ---
- Subjective Encounter Start Date: 08/27/18 Encounter Start Time: 14:49 Mr. Richardson was seen today in follow-up of SBO. He is feeling a bit better. He had a bowel movement this morning. He notes some continues abdominal soreness. - Objective Resuscitation Status - Order Detail: 08/23/18 08:39 Resuscitation Status Routine Resuscitation Status: FULL: Full Resuscitation Discussed with: POA: JASON Reviewed: Yes Vital Signs & Weight: Vital Signs (12 hours) Temp Pulse Resp BP Pulse Ox 08/27/18 11:15 99 F 91 20 155/76 H 94 L 08/27/18 08:00 92 L 08/27/18 07:27 99.3 F 90 22 H 145/71 H 92 L 08/27/18 03:25 98.9 F 94 16 138/76 95 Weight Admit Weight 260 lb 1.6 oz Weight 260 lb 1.6 oz I&O: 08/26/18 08/27/18 08/28/18 06:59 06:59 06:59 Intake Total 4426 1730 1020 Output Total 600 650 450 Balance 3826 1080 570 Result Diagrams: 08/27/18 07:18 08/27/18 07:18 Phys Exam - Physical Examination HEENT: PERRLA Respiratory: no wheezing, no rales, no rhonchi, clear to auscultation bilateral Cardiovascular: RRR, no significant murmur, no rub Gastrointestinal: soft, positive bowel sounds + mildly distended Musculoskeletal: no edema, pulses present Dx/Plan (1) Small intestine obstruction Code(s): K56.609 - UNSP INTESTNL OBST, UNSP TO PARTIAL VERSUS COMPLETE OBST Status: Acute (2) BPH (benign prostatic hyperplasia) Code(s): N40.0 - BENIGN PROSTATIC HYPERPLASIA WITHOUT LOWER URINRY TRACT SYMP Status: Chronic (3) HTN (hypertension) Code(s): I10 - ESSENTIAL (PRIMARY) HYPERTENSION Status: Chronic Qualifiers: Hypertension type: essential hypertension Qualified Code(s): I10 - Essential (primary) hypertension Comment: Stable, continue Losartan 100mg daily - Plan * SBO- he is beginning to have return ofbowel function * NG tube has been removed * HTN- blood pressure is better- will continue the Catapres patch for now until he is taking nutrition by mout * Will continue PPN in the interim .
[2018-08-27] MEDS ORDERED: traMADol HCl 50 MG TAB PO PRN ×2 (15:10)
[2018-08-27] MEDS ORDERED: Ibuprofen 200 MG TAB PO PRN (15:13)
[2018-08-27] MEDS: Acetaminophen 500 MG TAB PO SCH (17:49)
[2018-08-27] MEDS: Enoxaparin Sodium 40 MG/0.4 ML SYRINGE SC SCH (21:02)
[2018-08-28] MEDS: Acetaminophen 500 MG TAB PO SCH ×3 (00:30→12:10)
[2018-08-28] MEDS ORDERED: Rosuvastatin 10 MG TAB PO SCH (09:00)
[2018-08-28] MEDS ORDERED: Varenicline Tartrate 0.5 MG TAB PO SCH (09:00)
[2018-08-28] MEDS ORDERED: Losartan 25 MG TAB PO SCH (09:00)
[2018-08-28] MEDS: Famotidine 20 MG TAB PO SCH (09:15)
--- NOTE | 2018-08-28 14:18 | PDOC.PN ---
- Subjective Encounter Start Date: 08/28/18 Encounter Start Time: 14:16 Mr. Richardson was seen today in follow-up of SBO. He does not have any complaints. - Objective Resuscitation Status - Order Detail: 08/23/18 08:39 Resuscitation Status Routine Resuscitation Status: FULL: Full Resuscitation Discussed with: POA: JASON Reviewed: Yes Vital Signs & Weight: Vital Signs (12 hours) Temp Pulse Resp BP Pulse Ox 08/28/18 11:51 97.7 F 71 16 130/73 96 08/28/18 08:09 97.9 F 67 16 128/69 94 L 08/28/18 04:03 98.0 F 69 20 127/77 95 Weight Admit Weight 260 lb 1.6 oz Weight 260 lb 1.6 oz I&O: 08/27/18 08/28/18 08/29/18 06:59 06:59 06:59 Intake Total 1730 3182 Output Total 650 900 Balance 1080 2282 Result Diagrams: 08/27/18 07:18 08/27/18 07:18 Phys Exam - Physical Examination HEENT: PERRLA Respiratory: no wheezing, no rales, no rhonchi, clear to auscultation bilateral Cardiovascular: RRR, no significant murmur, no rub Gastrointestinal: soft, non-tender, no distention, positive bowel sounds Musculoskeletal: no edema, pulses present Dx/Plan (1) Small intestine obstruction Code(s): K56.609 - UNSP INTESTNL OBST, UNSP TO PARTIAL VERSUS COMPLETE OBST Status: Acute (2) BPH (benign prostatic hyperplasia) Code(s): N40.0 - BENIGN PROSTATIC HYPERPLASIA WITHOUT LOWER URINRY TRACT SYMP Status: Chronic (3) HTN (hypertension) Code(s): I10 - ESSENTIAL (PRIMARY) HYPERTENSION Status: Chronic Qualifiers: Hypertension type: essential hypertension Qualified Code(s): I10 - Essential (primary) hypertension Comment: Stable, continue Losartan 100mg daily - Plan * Small Bowel Obstruction- this has resolved post exploratory lap * Stable for discharge home.
[2018-08-28 15:29] VITALS: BP 129/60; TEMP 98.7
--- NOTE | 2018-08-29 01:14 | DIS ---
DATE OF ADMISSION: 08/23/2018 DATE OF DISCHARGE: 08/28/2018 DISCHARGE DISPOSITION: Home. PRIMARY DISCHARGE DIAGNOSES: 1. Small bowel obstruction. 2. Hypertension. 3. Morbid obesity. DISCHARGE MEDICATIONS: 1. Chantix 0.5 mg p.o. daily. 2. Crestor 10 mg daily. 3. Losartan 50 mg daily. 4. Ibuprofen 400 mg q.6 hours as needed. 5. Aspirin 81 mg daily. CODE STATUS: Full code. ALLERGIES: NO KNOWN DRUG ALLERGIES. PROCEDURES DONE DURING THE ADMISSION: The patient had a CT scan of the abdomen and pelvis, which demonstrated no evidence of urinary tract obstruction. There was some evidence of diverticulosis and a low-grade partial distal small-bowel obstruction. The patient had a laparoscopic exploratory laparotomy with lysis of adhesions and biopsy of mesenteric nodules which came out benign. HOSPITAL COURSE: Mr. Richardson is a pleasant 72-year-old gentleman, who presented to the emergency room with complaints of severe abdominal pain as well as nausea and vomiting. He was evaluated in the ER and found to have a partial small-bowel obstruction. He was admitted and General Surgery was consulted. There was an attempt to see if this would resolve spontaneously, however, the obstruction did not spontaneously resolve. He therefore underwent an exploratory laparotomy with lysis of adhesions. He had a postop ileus for a few days, however, the bowel function did return and he was able to tolerate a solid diet and was feeling much improved and on 08/28/2018, he was able to be discharged home in stable condition with close outpatient followup. Job ID: [id number]
--- NOTE | 2018-08-29 08:45 | PRG ---
DATE OF SERVICE: 08/27/2018 SUBJECTIVE: The patient is a 72-year-old with past history of hepertension, abesity who was admitted with abdominal pain. Patient was diagnosis with small bowel obstruction and had exploratory laparotomy and lysis of adhesion. How the patient is today: The patient has explained that he is doing well today. Ambulating, yes. Nausea and vomiting, none. Pain, none. Fever, none. Having bowel movements, yes. Passing gas, yes He is able to tolerate solid diet OBJECTIVE: VITAL SIGNS: Current temperature 98 , current heart rate _88 , current blood pressure ___140/80 , current respiratory rate __18 , current O2 sat 98 on room air. PHYSICAL EXAMINATION: GENERAL: Well-appearing and relaxed patient . HEENT: Normocephalic, atraumatic. CARDIOVASCULAR: Regular rate and rhythm. Clear S1/S2 heard. RESPIRATORY: No respiratory distress. LUNGS: Clear to auscultation bilaterally. ABDOMEN: Soft. Nontender. Nondistended. EXTREMITIES: Warm and well perfused. NEURO: Intact neurological. Oriented x3. LABORATORY DATA: WBC __17.8 , hemoglobin __11.8 . potassium _3.6_ , sodium ___136 , creatinine___0.85 . IMAGING RESULTS: No new imaging to be reviewed. ASSESSMENT: The patient is a 72-year-old male with a past history hypertension , obesity, who was admitted with_abdominal pain . Clinical workup currently is notable for the following Small bowel obstruction Post op laparotomy for lysis adhesion hypertension Obesity PLAN: Based upon the information above, the following should be done to advance the care of the patient that fall into various categories. Diagnostic tests/studies to be ordered: CBC, BMP Pharmacological management, pain control intervention to be ordered/performed. none Other management to be conducted. Working with PT/OT. Spirometer incentive. DVT prophylaxis. Gastritis prophylaxis placement plan. Rehab screening is in place. Job ID: [id number] [facility]
== END 2018-08-28 17:15 | disposition home or self-care (01) | DRG 337 ==
LOC: ERS 20:27 → T4-A 08-23 00:31 → SURG A 08-24 18:24
PROVIDERS: ADMIT Hospitalist; ATTEND Hospitalist
PROC: 0DN80ZZ Release Small Intestine, Open Approach (ICD-10-PCS; principal; 2018-08-24)
PROC: 0DBV0ZX Excision of Mesentery, Open Approach, Diagnostic (ICD-10-PCS; 2018-08-24)
DX: K56.600 Partial intestinal obstruction, unspecified as to cause (principal); I10 Essential (primary) hypertension; E78.5 Hyperlipidemia, unspecified; E66.01 Morbid (severe) obesity due to excess calories; K56.7 Ileus, unspecified; N40.0 Benign prostatic hyperplasia without lower urinary tract symptoms; Z96.652 Presence of left artificial knee joint; Z68.35 Body mass index [BMI] 35.0-35.9, adult; Z98.890 Other specified postprocedural states; Z87.891 Personal history of nicotine dependence
CPT/HCPCS: 36415; 74176; 74250; 80048; 80053; 81003; 83605; 85025; 88184; 88305; 88341; 88342; 96361; 96365; 96375; J0131; J0360; J0690; J1170; J1200; J1650; J2270; J2405; J2543; J2550; J3010; J3490; Q9963; S0028

== ENCOUNTER 2019-01-31 14:11 | Outpatient (CLI) | payer MEDICARE, OTHER ==
--- NOTE | 2019-01-31 17:01 | RAD ---
LUMBAR SPINE 2 VIEWS: Date: 01/31/19 HISTORY: Low back pain. FINDINGS: AP view is overexposed and nondiagnostic. On the lateral view, pedicle screws are noted at L5-S1 with a Grade I anterolisthesis at L5-S1. The disc spaces are preserved at L3-4, L4-5, and L5-S1. Disc narrowing is noted at L1-2 and L2-3. Mild to moderate osteophytes at L1-2 and L2-3. Facet hypert rophy. IMPRESSION: Degenerative and postoperative changes are noted. POS: Sharon
== END 2019-01-31 14:12 | disposition home or self-care (01) ==
LOC: TBSIIMAG 14:11
PROVIDERS: ATTEND Neurological Surgery
DX: M54.5 Low back pain (principal); M47.816 Spondylosis without myelopathy or radiculopathy, lumbar region; Z98.890 Other specified postprocedural states
CPT/HCPCS: 72100

== ENCOUNTER 2020-07-01 11:19 | Outpatient (CLI) | payer MEDICARE | END 2020-07-01 11:20 | disposition home or self-care (01) | LOC: BICRAD 11:19 | PROVIDERS: ATTEND Internal Medicine Pulmonary Disease | DX: R06.00 Dyspnea, unspecified (principal) | CPT/HCPCS: 71046 ==

== ENCOUNTER 2021-02-08 21:06 | Emergency (ER) | payer MEDICARE ==
[~2021-02-08 21:06] MED LIST: Iopamidol-370 76% 500 ML 1 ML ONE
[2021-02-08 21:49] LABS: #Basophils 0.1 thou/uL (0.0-0.2); #Eosinphils 0.1 thou/uL (0.0-0.7); #Lymphocytes 3.2 thou/uL (1.20-3.40); #Monocytes 1.1 thou/uL (0.11-0.59); #Neutrophils 11.5 thou/uL (1.40-6.50); %Basophils 0.4 % (0.0-1.0); %Eosinophils 0.8 % (0.0-10.0); %Lymphocytes 20.1 % (21.0-51.0); %Monocytes 6.9 % (0.0-10.0); %Neutrophils 71.8 % (42.0-75.0); Hemoglobin 14.2 g/dL (14.0-18.0); Mean Corpuscular HGB CONC 31.4 g/dL (32.0-36.0); Mean Corpuscular Hemoglobin 26.9 pg (27.0-31.0); Mean Corpuscular Volume 85.5 fL (78.0-98.0); Mean Platelet Volume 6.4 fL (7.4-10.4); Platelet Count 342 thou/uL (130-400); RBC Distribution Width 13.3 % (11.5-14.5); Red Blood Cell (RBC) Count 5.28 mill/uL (4.70-6.10)
[2021-02-08 22:08] LABS: ALT (SGPT) 28 U/L (8-55); AST (SGOT) 16 U/L (5-34); Albumin 4.3 g/dL (3.4-4.8); Alkaline Phosphatase 72 U/L (40-110); Anion Gap 16 mmol/L (10-20); BUN (Urea Nitrogen) 15 mg/dL (8.4-25.7); Bilirubin, Total 0.5 mg/dL (0.2-1.2); Calc. Creatinine Clearance 0 mL/min (70-130); Carbon Dioxide 24 mmol/L (23-31); Chloride 100 mmol/L (98-107); Globulin 3.4 g/dL (2.4-3.5); Glucose 101 mg/dL (83-110); Potassium 4.5 mmol/L (3.5-5.1); Protein, Total 7.7 g/dL (5.8-8.1); Sodium 135 mmol/L (136-145)
[2021-02-08 22:34] LABS: Bilirubin Negative (Negative); Blood, Urine Negative (Negative); Clarity Clear (Clear); Glucose, Urine (Dipstick) Normal (Negative); Ketone, Urine Negative (Negative); Leukocyte Negative Leu/uL (Negative); Nitrite Negative (Negative); Protein, Urine (Dipstick) Negative (Neg-Trace); Specific Gravity, Urine 1.005 (1.002-1.036); Urobilinogen Normal mg/dL (Less than 2)
[2021-02-09] MEDS ORDERED: Piperacillin/Tazobactam 4.5 GM VIAL ONE (00:01)
== END 2021-02-09 01:01 | disposition home or self-care (01) ==
LOC: ERS 21:06
DX: K57.32 Diverticulitis of large intestine without perforation or abscess without bleeding (principal); D72.829 Elevated white blood cell count, unspecified; I10 Essential (primary) hypertension; E78.5 Hyperlipidemia, unspecified; E78.00 Pure hypercholesterolemia, unspecified; K21.9 Gastro-esophageal reflux disease without esophagitis; Z87.891 Personal history of nicotine dependence
CPT/HCPCS: 36415; 74177; 80053; 81003; 83690; 85025; 96365; J2543; Q9967

== ENCOUNTER 2021-03-24 07:18 | Outpatient (CLI) | payer MEDICARE | END 2021-03-24 07:19 | disposition home or self-care (01) | LOC: BICULT 07:18 | PROVIDERS: ATTEND Family Medicine | DX: E78.2 Mixed hyperlipidemia (principal); I65.22 Occlusion and stenosis of left carotid artery | CPT/HCPCS: 75571; 93880 ==

== ENCOUNTER 2022-08-23 17:30 | Outpatient (CLI) | payer MEDICARE | END 2022-08-23 17:31 | disposition home or self-care (01) | LOC: SLEEPLAB 17:30 | PROVIDERS: ATTEND Family Medicine | DX: G47.33 Obstructive sleep apnea (adult) (pediatric) (principal); R53.83 Other fatigue; E66.9 Obesity, unspecified; R06.83 Snoring; G47.00 Insomnia, unspecified; I10 Essential (primary) hypertension; Z68.41 Body mass index [BMI] 40.0-44.9, adult | CPT/HCPCS: 95800 ==

== ENCOUNTER 2022-10-07 19:30 | Outpatient (CLI) | payer MEDICARE | END 2022-10-07 19:31 | disposition home or self-care (01) | LOC: SLEEPLAB 19:30 | PROVIDERS: ATTEND Family Medicine | DX: G47.33 Obstructive sleep apnea (adult) (pediatric) (principal); R53.83 Other fatigue; E66.9 Obesity, unspecified; R06.83 Snoring; I10 Essential (primary) hypertension; G47.10 Hypersomnia, unspecified; G47.61 Periodic limb movement disorder; I49.3 Ventricular premature depolarization; Z68.41 Body mass index [BMI] 40.0-44.9, adult | CPT/HCPCS: 95811 ==

== ENCOUNTER 2023-01-03 15:31 | Emergency (ER) | payer MEDICARE ==
[~2023-01-03 15:31] MED LIST changes: -Iopamidol-370 76% 500 ML 1 ML ONE; +Iopamidol-370 76% 500 ML MDV (1 ML CHARGE) ONE
[2023-01-03 15:56] LABS: #Eosinphils 0.1 thou/uL (0.0-0.7); #Monocytes 1.5 thou/uL (0.11-0.59); #Neutrophils 12.4 thou/uL (1.40-6.50); %Basophils 0.1 % (0.0-1.0); %Eosinophils 0.8 % (0.0-10.0); %Lymphocytes 15.2 % (21.0-51.0); %Monocytes 8.9 % (0.0-10.0); %Neutrophils 74.6 % (42.0-75.0); Hematocrit 43.7 % (42.0-52.0); Hemoglobin 14.4 g/dL (14.0-18.0); Mean Corpuscular Hemoglobin 27.7 pg (27.0-31.0); Mean Corpuscular Volume 84.2 fl (78.0-98.0); Platelet Count 286 10x3/uL (130-400); RBC Distribution Width 13.8 % (11.5-14.5); Red Blood Cell (RBC) Count 5.19 mill/uL (4.70-6.10); White Blood Cell (WBC) Count 16.7 10x3/uL (4.8-10.8)
[2023-01-03 16:03] LABS: Bacteria/HPF None Seen HPF (None Seen); Bilirubin Negative (Negative); Blood, Urine Negative (Negative); CAUTI Indications for Culture Pelvic or flank pain; Clarity Clear (Clear); Glucose, Urine (Dipstick) Normal (Negative); Ketone, Urine Negative (Negative); Leukocyte Negative Leu/uL (Negative); Nitrite Negative (Negative); Protein, Urine (Dipstick) Negative (Neg-Trace); RBC/HPF 0-3 HPF (0-3); Specific Gravity, Urine 1.019 (1.002-1.036); Squamous Epithelial 0-3 HPF (0-3); Urobilinogen Normal mg/dL (Less than 2); WBC/HPF 0-3 HPF (0-3); pH, Urine 6.5 (5.0-9.0)
[2023-01-03 16:18] LABS: ALT (SGPT) 19 U/L (8-55); AST (SGOT) 17 U/L (5-34); Albumin 4.3 g/dL (3.4-4.8); Alkaline Phosphatase 69 U/L (40-110); Anion Gap 13 mmol/L (10-20); BUN (Urea Nitrogen) 16 mg/dL (8.4-25.7); Bilirubin, Total 0.5 mg/dL (0.2-1.2); Calc. Creatinine Clearance 0 mL/min (70-130); Calcium 8.8 mg/dL (7.8-10.44); Carbon Dioxide 25 mmol/L (23-31); Chloride 104 mmol/L (98-107); Estimated GFR 63; Globulin 2.7 g/dL (2.4-3.5); Glucose 96 mg/dL (83-110); Potassium 4.3 mmol/L (3.5-5.1); Sodium 138 mmol/L (136-145)
[2023-01-03] MEDS ORDERED: Ketorolac Tromethamine 30 MG/ML VIAL ONE (16:25)
[2023-01-03 16:30] LABS: Urine Culture Reflex No No
== END 2023-01-03 17:19 | disposition home or self-care (01) ==
LOC: ERS 15:31
DX: K57.31 Diverticulosis of large intestine without perforation or abscess with bleeding (principal); E78.00 Pure hypercholesterolemia, unspecified; K21.9 Gastro-esophageal reflux disease without esophagitis; I10 Essential (primary) hypertension; Z79.899 Other long term (current) drug therapy
CPT/HCPCS: 36415; 74177; 80053; 81001; 85025; 96374; J1885; Q9967

== ENCOUNTER 2023-04-05 08:48 | Emergency (ER) | payer MEDICARE ==
[2023-04-05] MEDS ORDERED: Morphine 4 MG/ML VIAL ONE (09:27)
[2023-04-05] MEDS ORDERED: Ibuprofen 800 MG TAB ONE (09:33)
== END 2023-04-05 10:44 | disposition home or self-care (01) ==
LOC: ERS 08:48
DX: M54.50 Low back pain, unspecified (principal); K21.9 Gastro-esophageal reflux disease without esophagitis; E78.00 Pure hypercholesterolemia, unspecified; I10 Essential (primary) hypertension; Z79.899 Other long term (current) drug therapy; Z79.82 Long term (current) use of aspirin
CPT/HCPCS: 72131; 96372; J2270